=== PATIENT | female | born 1965 | race Caucasian/White ===

== ENCOUNTER → 2018-01-29 | Outpatient (CLI) | payer BC ==
--- NOTE | 2018-01-29 11:42 | Diagnostic Imaging Report ---
TECHNIQUE: Magnetic resonance imaging of the LEFT foot was performed WITHOUT injected contrast. HISTORY: Left foot pain COMPARISON: None available. DISCUSSION: Bone: No acute fracture or osteonecrosis. Joints: First MTP joint and hallux sesamoid interval degenerative arthrosis. Soft Tissues: Unremarkable. IMPRESSION: First MTP joint and hallux sesamoid interval degenerative arthrosis. Signed by: Dr. Jonathan Bullard M.D. on 01/29/2018 11:39 AM
== END ==
LOC: MRI 10:15
PROVIDERS: ATTEND Podiatrist Foot Surgery
DX: M72.2 Plantar fascial fibromatosis (principal); M79.672 Pain in left foot; M79.671 Pain in right foot